=== PATIENT | female | born 1975 | race Caucasian/White ===

== ENCOUNTER 2018-07-15 21:08 | Emergency (ER) | payer OTHER ==
[2018-07-15 21:14] VITALS: BP 146/92
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
[2018-07-16] MEDS ORDERED: TORADOL ONE (01:36)
[2018-07-16] MEDS ORDERED: TORADOL IM ONE (06:39)
== END 2018-07-16 06:40 | disposition home or self-care (01) ==
LOC: ED 21:08
DX: S09.90XA Unspecified injury of head, initial encounter (principal); S19.9XXA Unspecified injury of neck, initial encounter; S29.9XXA Unspecified injury of thorax, initial encounter; V49.9XXA Car occupant (driver) (passenger) injured in unspecified traffic accident, initial encounter; Y93.89 Activity, other specified; Y99.8 Other external cause status; Y92.410 Unspecified street and highway as the place of occurrence of the external cause
CPT/HCPCS: 70450; 72125; 72131; 99284; J1885